=== PATIENT | female | born 1960 | race Caucasian/White ===

== ENCOUNTER 2016-11-14 13:36 | Emergency (ER) | payer BC ==
[~2016-11-14] VITALS: Ht 172.7 cm; Wt 106.9 kg
[2016-11-14 14:20] LABS: MCH 28.8 PG (29.0-34.0); MCHC 32.9 G/DL (30.0-36.0); MCV 87.6 FL (83-99); MEAN PLAT.VOLUME 10.6 uM^3 (9.5-12.4); PLATELET COUNT 208 K/uL (156-360); RBC DIS.WIDTH-CV 13.7 % (11.8-14.6); RED BLOOD COUNT 4.68 M/uL (3.80-5.20); WHITE BLOOD COUNT 7.5 K/uL (4.1-10.2)
[2016-11-14 14:29] LABS: CHLORIDE 107 mEq/L (99-109); POTASSIUM 3.8 mEq/L (3.7-5.4); SODIUM 138 mEq/L (136-147)
[2016-11-14 14:30] LABS: GLUCOSE 109 mg/dL (70-99)
[2016-11-14 14:32] LABS: ANION GAP 9 MEQ/L (2-14)
[2016-11-14 14:34] LABS: GFR ESTIMATE (CALCULATED) > 59 mL/min/
[2016-11-14 14:35] LABS: UREA NITROGEN (BUN) 14 mg/dL (9-23)
[2016-11-14 14:42] LABS: TROP-I INTERPRETATION NEGATIVE; TROPONIN-I < 0.01 ng/mL (0.0-0.30)
[2016-11-14 18:02] LABS: TROP-I INTERPRETATION NEGATIVE; TROPONIN-I < 0.01 ng/mL (0.0-0.30)
[2016-11-14 18:15] VITALS: BP 144/85
[2016-11-14] MEDS ORDERED: ATARAX,VISTARIL50 MG PO (18:16)
== END 2016-11-14 18:30 | disposition left against medical advice (07) ==
LOC: EME 13:36 → RME 13:36
PROVIDERS: Physician Assistant
DX: R00.2 Palpitations (principal); F41.9 Anxiety disorder, unspecified; F17.200 Nicotine dependence, unspecified, uncomplicated; Z82.49 Family history of ischemic heart disease and other diseases of the circulatory system
CPT/HCPCS: 71020; 80048; 84484; 85027; 85379; 93005; 99281; 99284; J7030